=== PATIENT | female | born 1950 | race Caucasian/White ===

== ENCOUNTER 2021-01-08 10:13 | Outpatient (CLI) | payer MEDICARE | END 2021-01-08 23:59 | disposition home or self-care (01) | LOC: CFH 10:13 | PROVIDERS: ATTEND Internal Medicine | DX: Z12.31 Encounter for screening mammogram for malignant neoplasm of breast (principal); M81.0 Age-related osteoporosis without current pathological fracture; N95.8 Other specified menopausal and perimenopausal disorders | CPT/HCPCS: 77063; 77067; 77080 ==